=== PATIENT | male | born 2000 | race Caucasian/White ===

== ENCOUNTER 2024-10-21 01:43 | Emergency (ER) | payer BC, SELFPAY ==
[2024-10-21 01:48] VITALS: BP 128/78
--- NOTE | 2024-10-21 02:24 | ED.GENMED ---
History of Present Illness
General
Chief Complaint: Musculo-Skeletal Complaint
Source: patient
Time Seen by Provider: 10/21/24 02:20
History of Present Illness
History of Present Illness:
23-year-old male presenting the ER for evaluation of right knee pain after he was wrestling with one of his friends stating that he felt a pop in his knee and sudden pain. Patient states that while he is able to ambulate this does cause him
increased discomfort. No other injuries were sustained. Patient denies any history of injury.
Past History
Past History
ED Past Medical History: Psychiatric
ED Past Surgical History: Tonsilectomy
Social History
Tobacco: Non-smoker
Alcohol: Occasional
Drug: None
Personal: Single
Living: with family
Review of Systems
Review of Systems
All Other Systems: ROS reviewed and negative except as documented in HPI and ROS
Phy Exam
Physical Exam
Physical Exam:
GENERAL: Alert , in no apparent distress
EYE: conjunctiva clear
Head: Normocephalic atraumatic
NECK: Supple,
ENT: mmm.
LUNGS: no acute respiratory distress
NEUROLOGICAL: Alert and oriented
SKIN: Warm and dry, skin intact.
MUSCULOSKELETAL: Right knee: No obvious deformity, breaks in the skin, edema or ecchymosis. No focal areas of tenderness. Patient still allows for full range of motion but this does cause him increased discomfort. Extremity is otherwise warm
well-perfused. No obvious laxity within the joint
PSYCH: Normal and appropriate interaction.
Scores
Heart Failure Risk
Heart Failure Risk Score: Not Applicable
Heart Score for Chest Pain Patients
STEMI patient?: Not applicable
Withdrawal Assessment of Alcohol
Withdrawal Assessment Completed?: Not applicable
Course
Orders/Labs/Results
Orders:
Orders
10/21/24 01:53
Knee, Right 4 or More Views [CR Knee- Right 4 Or More View*] Urgent
Comment:
Reason For Exam: injury
Vital Signs
Initial and Last Documented VS:
Initial Vital Signs
Temp Pulse Resp BP Pulse Ox
98.6 F 76 20 128/78 100
10/21/24 01:48 10/21/24 01:48 10/21/24 01:48 10/21/24 01:48 10/21/24 01:48
Last Documented Vital Signs
Temp Pulse Resp BP Pulse Ox
98.6 F 76 20 128/78 100
10/21/24 01:48 10/21/24 01:48 10/21/24 01:48 10/21/24 01:48 10/21/24 01:48
MDM/Problems Addressed
Differential Diagnosis Includes:
- Ligamentous injury
- Meniscal injury
- Fracture
- Tendon rupture
MDM/Problems Addressed:
23-year-old male presenting the ER for evaluation of right knee pain following a wrestling injury. Range of motion causes increased pain however there is no noted deformity. X-ray ordered from triage shows no acute fracture. Will place in a knee
immobilizer for comfort. NSAIDs/Tylenol as needed for pain. Information for outpatient orthopedics provided. Stable for discharge home otherwise.
*Radiology
Radiology exam reviewed: preliminary read by ED provider (No acute fracture)
*Pulse Oximetry
SaO2: 100
Oxygen Mode of Delivery: Room air
Patient hypoxic: no
*Critical Care Note
Total Time (30-74mins, 75-104mins- exclusive of procedures): Not Applicable
ED Attending Note
-
Portions of this chart may have been created with voice recognition software.� Occasional wrong word or��sound alike� substitutions may have occurred due to the inherent limitations of voice recognition software.
Discharge Plan
Departure
Patient Disposition: Home (Routine Discharge)
Date of Disposition: 10/21/24
Time of Disposition: 02:24
Patient with high blood pressure during this ER visit?: No
Discharge Problem:
Knee pain, right
Instructions: Knee Pain (DC)
Referrals:
Letitia Nunes I., DO [Active, Orthopedics]
Referral Note: Call for appointment
UNKNOWN - PT DOES,NOT KNOW [Family Provider]
Interventions
Interventions:
*Risk Screen - Suicide Last Done: 10/21/24 01:48
*General Assessment Last Done: 10/21/24 01:48
*Neglect/Abuse Screening Last Done: 10/21/24 01:48
*ED- Fall Risk Assessment Last Done: 10/21/24 01:48
*ED COVID-19 Vaccine History Last Done: 10/21/24 01:48
Discharge Date and Time
Print Language: [id number]
== END 2024-10-21 02:30 | disposition home or self-care (01) ==
LOC: EMR 01:43
PROVIDERS: EMERGENCY PHYSICIAN Emergency Medicine
DX: M25.561 Pain in right knee (principal); X58.XXXA Exposure to other specified factors, initial encounter; Y93.72 Activity, wrestling
CPT/HCPCS: 29505; 99283; 73564

== ENCOUNTER → 2024-10-25 16:03 | Outpatient (REF) | payer BC, SELFPAY | LOC: RAD 16:03 | PROVIDERS: ATTENDING PHYSICIAN Specialist | DX: S00.259A Superficial foreign body of unspecified eyelid and periocular area, initial encounter (principal) | CPT/HCPCS: 70030 ==